=== PATIENT | female | born 1990 | race Caucasian/White ===

== ENCOUNTER 2021-11-25 20:09 | Emergency (ER) | payer MEDICAID ==
[~2021-11-25] VITALS: Ht 157.5 cm; Wt 51.7 kg
[2021-11-25 20:24] VITALS: BP_SYST 112
--- NOTE | 2021-11-25 20:27 | NUR ---
STATES HAS HAD RIGHT EAR PAIN X 3 MONTHS BUT UNABLE TO SEE PMD FOR THREE MONTHS, NOW PAIN HAS INCREASED. NO OTHER SYMPTOMS PRESENT.
--- NOTE | 2021-11-25 23:21 | NUR ---
PATIENT LWBS. REGISTRATION SAW PATIENT LEAVE AFTER BEING UPSET WITH WAIT TIME.
== END 2021-11-25 23:22 | disposition left against medical advice (07) ==
LOC: SED 20:09
DX: H92.01 Otalgia, right ear (principal); Z53.21 Procedure and treatment not carried out due to patient leaving prior to being seen by health care provider

== ENCOUNTER 2021-11-25 23:48 | Emergency (ER) | payer MEDICAID ==
[~2021-11-25] VITALS: Ht 157.5 cm; Wt 51.7 kg
[2021-11-25 23:53] VITALS: BP_SYST 107
--- NOTE | 2021-11-25 23:56 | NUR ---
PATIENT LWBS EARLIER AND CAME BACK FOR C/O RIGHT EAR PAIN X 3 MONTHS.
--- NOTE | 2021-11-26 04:08 | NUR ---
PER TRIAGE, PATIENT LEFT WITHOUT BEING SEEN, AGAIN.
== END 2021-11-26 04:08 | disposition left against medical advice (07) ==
LOC: SED 23:48
DX: H92.01 Otalgia, right ear (principal); Z53.21 Procedure and treatment not carried out due to patient leaving prior to being seen by health care provider